=== PATIENT | female | born 1950 | race American Indian/Alaskan Native ===

== ENCOUNTER 2019-07-29 17:49 | Inpatient (IN) | payer MEDICARE ==
--- NOTE | 2019-07-29 17:58 | Event Note ---
ED Screening Note Date of service: 07/29/19 Time: 17:56 ED Screening Note: 68 y o f was sent here by car sales representative: Eliz for evaluation for A fib with rvr pmh:htn,lipidemia This initial assessment/diagnostic orders/clinical plan/treatment(s) is/are subject to change based on patients health status, clinical progression and re- assessment by fellow clinical providers in the ED. Further treatment and workup at subsequent clinical providers discretion. Patient/guardian urged not to elope from the ED as their condition may be serious if not clinically assessed and managed. Initial orders include: ekg labs
--- NOTE | 2019-07-29 18:38 | XRay Report ---
CHEST 2 VIEWS INDICATION / CLINICAL INFORMATION: a fib. COMPARISON: None available. FINDINGS: SUPPORT DEVICES: None. HEART / MEDIASTINUM: No significant abnormality. LUNGS / PLEURA: No significant pulmonary or pleural abnormality. No pneumothorax. ADDITIONAL FINDINGS: Subsegmental atelectasis in both lower lungs. IMPRESSION: 1. No acute findings. Signer Name: Santo Hill MD Signed: 07/29/2019 6:33 PM Workstation Name: [id number]
[2019-07-29 18:47] LABS: Basophils % (Auto) 0.7 % (0.0-1.8); Eosinophils # (Auto) 0.3 K/mm3 (0.0-0.4); Eosinophils % (Auto) 4.8 % (0.0-4.3); Hematocrit 37.3 % (30.3-42.9); Hemoglobin 12.4 gm/dl (10.1-14.3); Lymphocytes # (Auto) 2.1 K/mm3 (1.2-5.4); Lymphocytes % (Auto) 35.7 % (13.4-35.0); Mean Corpuscular HGB Conc 33 % (30-34); Mean Corpuscular Volume 90 fl (79-97); Monocytes # (Auto) 0.5 K/mm3 (0.0-0.8); Monocytes % (Auto) 8.5 % (0.0-7.3); Platelet Count 168 K/mm3 (140-440); Red Blood Count 4.14 M/mm3 (3.65-5.03); Red Cell Distribution Width 15.3 % (13.2-15.2)
[2019-07-29 19:15] LABS: Calcium 9.9 mg/dL (8.4-10.2)
--- NOTE | 2019-07-29 19:18 | Emergency Department Report ---
ED Palpitations HPI - General Chief Complaint: Arrhythmia/Palpitations Stated Complaint: PALPITATION Time Seen by Provider: 07/29/19 18:58 Source: patient Mode of arrival: Ambulatory Limitations: No Limitations - History of Present Illness Initial Comments: Patient is 68 years old female with history of hypertension and hyperlipidemia. Patient was sent from her fagoter's office Dr. Sharif for admission for atrial fibrillation with RVR. Patient went to her primary care physician this morning and found to have A. fib with RVR. Primary care physicians and had to Dr. Sharif did another EKG and found that she has atrial fibrillation with RVR heart rate of 130. In the emergency room patient's EKG showed sinus or ectopic atrial rhythm with a heart rate of 75 beats per minutes. Patient is currently denying any symptoms including shortness of breath or chest pain. MD Complaint: rapid heart beat, "heart racing", palpitations, irregular heart beat Context: occured during rest Associated Symptoms: denies other symptoms - Related Data Home Medications Medication Instructions Recorded Confirmed Last Taken Allopurinol [Zyloprim] 300 mg PO QDAY 07/29/19 07/29/19 1 Day Ago ~07/28/19 Amlodipine Besylate/Benazepril 1 each PO DAILY 07/29/19 07/29/19 1 Day Ago [Amlodipine-Benazepril 5-40 mg] ~07/28/19 Blood Sugar Diagnostic [Accu-Chek 1 each MC BID 07/29/19 07/29/19 1 Day Ago [facility]] ~07/28/19 Diclofenac 1% [Diclofenac 1% 100 gm TP BID 07/29/19 07/29/19 1 Day Ago topical gel] ~07/28/19 Doxazosin [Cardura] 4 mg PO BID 07/29/19 07/29/19 1 Day Ago ~07/28/19 Fluticasone Propionate 50 mcg NS DAILY 07/29/19 07/29/19 Unknown Furosemide [Lasix TAB] 40 mg PO QDAY 07/29/19 07/29/19 1 Day Ago ~07/28/19 Metoprolol Xl [Metoprolol 100 mg PO QDAY 07/29/19 07/29/19 1 Day Ago SUCCINATE ER TAB] ~07/28/19 Potassium Chloride 10 meq PO DAILY 07/29/19 07/29/19 1 Day Ago ~07/28/19 Pravastatin Sodium [Pravastatin] 80 mg PO QHS 07/29/19 07/29/19 1 Day Ago ~07/28/19 Allergies Allergy/AdvReac Type Severity Reaction Status Date / Time codeine Allergy Rash Verified 07/29/19 17:59 indomethacin [From Indocin] Allergy Rash Verified 07/29/19 17:59 metaxalone [From Skelaxin] Allergy Rash Verified 07/29/19 17:58 nitrofurantoin Allergy Rash Verified 07/29/19 17:59 [From Macrobid] Penicillins Allergy Rash Verified 07/29/19 17:59 ED Review of Systems ROS: Stated complaint: PALPITATION Other details as noted in HPI Comment: All other systems reviewed and negative Constitutional: denies: chills, fever Respiratory: denies: cough, shortness of breath, SOB with exertion Cardiovascular: palpitations. denies: chest pain Gastrointestinal: denies: abdominal pain, nausea, vomiting, diarrhea, constipation, hematemesis, melena, hematochezia Musculoskeletal: denies: back pain Neurological: denies: headache, weakness, numbness, paresthesias, confusion, abnormal gait ED Past Medical Hx - Past Medical History Previous Medical History?: Yes Hx Hypertension: Yes Additional medical history: High cholesterol - Surgical History Past Surgical History?: No - Medications Home Medications: Home Medications Medication Instructions Recorded Confirmed Last Taken Type Allopurinol [Zyloprim] 300 mg PO QDAY 07/29/19 07/29/19 1 Day Ago History ~07/28/19 Amlodipine Besylate/Benazepril 1 each PO DAILY 07/29/19 07/29/19 1 Day Ago History [Amlodipine-Benazepril 5-40 mg] ~07/28/19 Blood Sugar Diagnostic [Accu-Chek 1 each MC BID 07/29/19 07/29/19 1 Day Ago History [facility]] ~07/28/19 Diclofenac 1% [Diclofenac 1% 100 gm TP BID 07/29/19 07/29/19 1 Day Ago History topical gel] ~07/28/19 Doxazosin [Cardura] 4 mg PO BID 07/29/19 07/29/19 1 Day Ago History ~07/28/19 Fluticasone Propionate 50 mcg NS DAILY 07/29/19 07/29/19 Unknown History Furosemide [Lasix TAB] 40 mg PO QDAY 07/29/19 07/29/19 1 Day Ago History ~07/28/19 Metoprolol Xl [Metoprolol 100 mg PO QDAY 07/29/19 07/29/19 1 Day Ago History SUCCINATE ER TAB] ~07/28/19 Potassium Chloride 10 meq PO DAILY 07/29/19 07/29/19 1 Day Ago History ~07/28/19 Pravastatin Sodium [Pravastatin] 80 mg PO QHS 07/29/19 07/29/19 1 Day Ago History ~07/28/19 ED Physical Exam - General Limitations: No Limitations General appearance: alert, in no apparent distress - Head Head exam: Present: atraumatic, normocephalic, normal inspection - Eye Eye exam: Present: normal appearance - ENT ENT exam: Present: normal exam, normal orophraynx, mucous membranes moist - Neck Neck exam: Present: normal inspection, full ROM. Absent: tenderness, meningismus, lymphadenopathy, thyromegaly - Respiratory Respiratory exam: Present: normal lung sounds bilaterally - Cardiovascular Cardiovascular Exam: Present: regular rate, normal rhythm, normal heart sounds - GI/Abdominal GI/Abdominal exam: Present: soft, normal bowel sounds. Absent: distended, tenderness, guarding, rebound, rigid, organomegaly, mass, bruit, pulsatile mass, hernia - Extremities Exam Extremities exam: Present: normal inspection, full ROM, normal capillary refill. Absent: pedal edema, calf tenderness - Back Exam Back exam: Present: normal inspection, full ROM. Absent: CVA tenderness (R), CVA tenderness (L), muscle spasm, paraspinal tenderness, vertebral tenderness - Neurological Exam Neurological exam: Present: alert, oriented X3, CN II-XII intact, normal gait, reflexes normal - Psychiatric Psychiatric exam: Present: normal mood - Skin Skin exam: Present: warm, intact, normal color ED Course Vital Signs 07/29/19 07/29/19 18:58 18:59 Temperature 98.0 F 98.0 F Pulse Rate 76 87 Respiratory 17 13 Rate Blood Pressure 139/60 Blood Pressure 139/60 [Left] O2 Sat by Pulse 98 98 Oximetry ED Medical Decision Making - Lab Data Result diagrams: 07/29/19 18:24 07/29/19 18:24 - EKG Data -: EKG Interpreted by Ia EKG shows normal: sinus rhythm Rate: normal - EKG Data Interpretation: no acute changes - Radiology Data Radiology results: report reviewed - Medical Decision Making Patient is 68 years old female with history of hypertension and hyperlipidemia. Patient was sent from her fagoter's office Dr. Sharif for admission for atrial fibrillation with RVR. Patient went to her primary care physician this morning and found to have A. fib with RVR. Primary care physicians and had to Dr. Sharif did another EKG and found that she has atrial fibrillation with RVR heart rate of 130. In the emergency room patient's EKG showed sinus or ectopic atrial rhythm with a heart rate of 75 beats per minutes. Patient is currently denying any symptoms including shortness of breath or chest pain. Labs reviewed and is unremarkable. Chest x-ray is negative for acute finding. I discussed the patient with Dr. jaramillo, patient fagoter. Dr. Sharif advised to admit the patient to the hospital, intake man. He advised to start patient on Elliquis, continue her metoprolol and will follow-up with the patient in the morning. I discussed the patient was Dr. Wilson, he agreed to admit the patient to medical service for further management. Critical care attestation.: If time is entered above; I have spent that time in minutes in the direct care of this critically ill patient, excluding procedure time. ED Disposition Clinical Impression: Palpitations, New onset atrial fibrillation Disposition: OP ADMIT IP TO THIS HOSP Is pt being admited?: Yes Condition: Stable
[2019-07-29] MEDS ORDERED: SODIUM CHLORIDE 0.9% 1000 ML 1,000 ML IV SCH (20:30)
[2019-07-29 20:58] LABS: Alanine Aminotransferase 20 units/L (7-56); Albumin 4.1 g/dL (3.9-5)
[2019-07-29 20:59] LABS: INR 1.04 (0.87-1.13); Partial Thromboplastin Time 31.8 Sec. (24.2-36.6)
[2019-07-29 21:05] LABS: Free T4 (Free Thyroxine) 1.3 ng/dL (0.76-1.46)
[2019-07-29 21:15] LABS: Bilirubin,Direct < 0.2 mg/dL (0-0.2)
[2019-07-29] MEDS ORDERED: PRAVASTATIN 80 MG TAB PO ONE (21:29)
[2019-07-29 21:40] LABS: Chol/HDL Ratio 2.97 %
[2019-07-29] MEDS ORDERED: ONDANSETRON 4 MG/2 ML INJ IV PRN (22:08)
[2019-07-29] MEDS ORDERED: ACETAMINOPHEN 325 MG TAB PO PRN (22:08)
[2019-07-29] MEDS ORDERED: MAGNESIUM HYDROXIDE (MOM) ORAL LIQD UDC PO PRN (22:08)
[2019-07-29] MEDS: APIXABAN 5 MG TAB PO SCH (22:39)
--- NOTE | 2019-07-30 00:13 | History and Physical Report ---
History of Present Illness Date of examination: 07/29/19 Date of admission: 07/29/19 20:22 Chief complaint: Irregular heartbeat History of present illness: 68-year-old female with known history of hypertension and hyperlipidemia presenting to the emergency room today with atrial fibrillation with RVR. She had gone to her primary care physician's office was found to be in atrial fibrillation and sent to the emergency room for further evaluation. She denies any chest pain, no nausea vomiting, no headache or dizziness. Upon arrival in the emergency room heart rate was controlled. She was subsequently evaluated by the iron caster who recommended a beta-justus and also start the patient on Eliquis. Past History Past Medical History: hypertension, hyperlipidemia Past Surgical History: Other (Conization in 2000) Social history: no significant social history Family history: CAD, diabetes Medications and Allergies Allergies Allergy/AdvReac Type Severity Reaction Status Date / Time codeine Allergy Rash Verified 07/29/19 17:59 indomethacin [From Indocin] Allergy Rash Verified 07/29/19 17:59 metaxalone [From Skelaxin] Allergy Rash Verified 07/29/19 17:58 nitrofurantoin Allergy Rash Verified 07/29/19 17:59 [From Macrobid] Penicillins Allergy Rash Verified 07/29/19 17:59 Home Medications Medication Instructions Recorded Confirmed Last Taken Type Allopurinol [Zyloprim] 300 mg PO QDAY 07/29/19 07/29/19 1 Day Ago History ~07/28/19 Amlodipine Besylate/Benazepril 1 each PO DAILY 07/29/19 07/29/19 1 Day Ago History [Amlodipine-Benazepril 5-40 mg] ~07/28/19 Blood Sugar Diagnostic [Accu-Chek 1 each MC BID 07/29/19 07/29/19 1 Day Ago History [facility]] ~07/28/19 Diclofenac 1% [Diclofenac 1% 100 gm TP BID 07/29/19 07/29/19 1 Day Ago History topical gel] ~07/28/19 Doxazosin [Cardura] 4 mg PO BID 07/29/19 07/29/19 1 Day Ago History ~07/28/19 Fluticasone Propionate 50 mcg NS DAILY 07/29/19 07/29/19 Unknown History Furosemide [Lasix TAB] 40 mg PO QDAY 07/29/19 07/29/19 1 Day Ago History ~07/28/19 Metoprolol Xl [Metoprolol 100 mg PO QDAY 07/29/19 07/29/19 1 Day Ago History SUCCINATE ER TAB] ~07/28/19 Potassium Chloride 10 meq PO DAILY 07/29/19 07/29/19 1 Day Ago History ~07/28/19 Pravastatin Sodium [Pravastatin] 80 mg PO QHS 07/29/19 07/29/19 1 Day Ago History ~07/28/19 Active Meds: Active Medications Acetaminophen (Tylenol) 650 mg PO Q4H PRN PRN Reason: Pain MILD(1-3)/Fever >100.5/DOMINGO Apixaban (Eliquis) 5 mg PO Q12HR RADHA; Protocol Last Admin: 07/29/19 22:39 Dose: 5 mg Documented by: Sodium Chloride (Nacl 0.9% 1000 Ml) 1,000 mls @ 75 mls/hr IV DIRECT RADHA Magnesium Hydroxide (Milk Of Magnesia) 30 ml PO Q4H PRN PRN Reason: Constipation Metoprolol Tartrate (Metoprolol) 100 mg PO BID RADHA Ondansetron HCl (Zofran) 4 mg IV Q8H PRN PRN Reason: Nausea And Vomiting Sodium Chloride (Sodium Chloride Flush Syringe 10 Ml) 10 ml IV BID RADHA Sodium Chloride (Sodium Chloride Flush Syringe 10 Ml) 10 ml IV PRN PRN PRN Reason: LINE FLUSH Review of Systems Cardiovascular: palpitations Exam - Constitutional Vitals: Temp Pulse Resp BP Pulse Ox 98.1 F 68 18 149/69 97 07/29/19 23:57 07/29/19 23:57 07/29/19 23:57 07/29/19 23:57 07/29/19 23:57 General appearance: Present: no acute distress - EENT Eyes: Present: PERRL, EOM intact ENT: hearing intact, clear oral mucosa, dentition normal - Neck Neck: Present: supple, normal ROM - Respiratory Respiratory effort: normal Respiratory: bilateral: CTA - Cardiovascular Rhythm: regular Heart Sounds: Present: S1 & S2 - Extremities Extremities: no ischemia, pulses intact, No edema Peripheral Pulses: within normal limits - Abdominal General gastrointestinal: Present: soft, non-tender, non-distended - Integumentary Integumentary: Present: clear, warm, dry - Musculoskeletal Musculoskeletal: strength equal bilaterally - Psychiatric Psychiatric: appropriate mood/affect, intact judgment & insight, cooperative - Neurologic Neurologic: CNII-XII intact, moves all extremities Results - Labs CBC & Chem 7: 07/30/19 04:52 07/30/19 04:52 Labs: Abnormal lab results 07/29/19 07/29/19 07/29/19 Range/Units 18:24 18:24 19:38 RDW 15.3 H (13.2-15.2) % Lymph % (Auto) 35.7 H (13.4-35.0) % [place] % (Auto) 8.5 H (0.0-7.3) % Eos % (Auto) 4.8 H (0.0-4.3) % BUN 19 H (7-17) mg/dL Creatinine 2.2 H (0.7-1.2) mg/dL Glucose 108 H (65-100) mg/dL Troponin T 0.032 H (0.00-0.029) ng/mL NT-Pro-B Natriuret Pep 1578 H (0-900) pg/mL Triglycerides 174 H (2-149) mg/dL Assessment and Plan - Patient Problems (1) New onset atrial fibrillation Current Visit: Yes Status: Acute Plan to address problem: Patient placed on beta-justus metoprolol and also on Eliquis. She will be subsequently followed by the iron caster (2) HTN (hypertension) Current Visit: Yes Status: Acute Plan to address problem: Blood pressure stable. Will continue routine home medication. (3) Hyperlipidemia Current Visit: Yes Status: Acute Plan to address problem: We will continue routine home medication and monitor lipid profile. (4) Full code status Current Visit: Yes Status: Acute
[2019-07-30 06:10] LABS: Basophils % (Auto) 0.6 % (0.0-1.8); Eosinophils # (Auto) 0.3 K/mm3 (0.0-0.4); Eosinophils % (Auto) 5.3 % (0.0-4.3); Hematocrit 35.6 % (30.3-42.9); Hemoglobin 11.8 gm/dl (10.1-14.3); Mean Corpuscular HGB Conc 33 % (30-34); Mean Corpuscular Volume 91 fl (79-97); Monocytes # (Auto) 0.5 K/mm3 (0.0-0.8); Monocytes % (Auto) 7.8 % (0.0-7.3); Platelet Count 155 K/mm3 (140-440); Red Blood Count 3.92 M/mm3 (3.65-5.03)
[2019-07-30 06:32] LABS: Albumin 4.3 g/dL (3.9-5); Calcium 9.7 mg/dL (8.4-10.2)
[2019-07-30 06:42] LABS: INR 1.14 (0.87-1.13)
[2019-07-30 06:43] LABS: Partial Thromboplastin Time 33.9 Sec. (24.2-36.6)
[2019-07-30] MEDS ORDERED: SODIUM CHLORIDE 0.9% 1000 ML 1,000 ML IV SCH (09:00)
--- NOTE | 2019-07-30 09:02 | Consultation ---
History of Present Illness Consult date: 07/30/19 Requesting physician: HERBERT RM Consult reason: atrial fibrillation History of present illness: 68-year-old female past medical history of obesity hypertension hyperlipidemia was referred to my office for primary care doctor for abnormal EKG. EKG done at PCP showed atrial fibrillation with rapid ventricle heart rate heart rate 130s. My office patient's heart rate was in the 120s A. fib which is new onset. Patient some intermittent palpitations. Patient's were already on Toprol-XL 100. Patient was sent to the ED for further evaluation patient's heart rate was in a questionable junctional rhythm versus ectopic atrial rhythm. Patient was admitted was also to have profound acute renal insufficiency has patient states that having history of renal insufficiency in the past. Does take Lasix. Patient was started on IV hydration. Patient continue beta justus therapy and patient on review of telemetry shows to be in sinus rhythm. Denies syncope or chest pain. No fever no chills. Past History Past Medical History: hypertension, hyperlipidemia Past Surgical History: Other (Conization in 2000) Social history: no significant social history Family history: CAD, diabetes Medications and Allergies Allergies Allergy/AdvReac Type Severity Reaction Status Date / Time codeine Allergy Rash Verified 07/29/19 17:59 indomethacin [From Indocin] Allergy Rash Verified 07/29/19 17:59 metaxalone [From Skelaxin] Allergy Rash Verified 07/29/19 17:58 nitrofurantoin Allergy Rash Verified 07/29/19 17:59 [From Macrobid] Penicillins Allergy Rash Verified 07/29/19 17:59 Home Medications Medication Instructions Recorded Confirmed Last Taken Type Allopurinol [Zyloprim] 300 mg PO QDAY 07/29/19 07/29/19 1 Day Ago History ~07/28/19 Amlodipine Besylate/Benazepril 1 each PO DAILY 07/29/19 07/29/19 1 Day Ago History [Amlodipine-Benazepril 5-40 mg] ~07/28/19 Blood Sugar Diagnostic [Accu-Chek 1 each MC BID 07/29/19 07/29/19 1 Day Ago History [facility]] ~07/28/19 Diclofenac 1% [Diclofenac 1% 100 gm TP BID 07/29/19 07/29/19 1 Day Ago History topical gel] ~07/28/19 Doxazosin [Cardura] 4 mg PO BID 07/29/19 07/29/19 1 Day Ago History ~07/28/19 Fluticasone Propionate 50 mcg NS DAILY 07/29/19 07/29/19 Unknown History Furosemide [Lasix TAB] 40 mg PO QDAY 07/29/19 07/29/19 1 Day Ago History ~07/28/19 Metoprolol Xl [Metoprolol 100 mg PO QDAY 07/29/19 07/29/19 1 Day Ago History SUCCINATE ER TAB] ~07/28/19 Potassium Chloride 10 meq PO DAILY 07/29/19 07/29/19 1 Day Ago History ~07/28/19 Pravastatin Sodium [Pravastatin] 80 mg PO QHS 07/29/19 07/29/19 1 Day Ago History ~07/28/19 Active Meds: Active Medications Acetaminophen (Tylenol) 650 mg PO Q4H PRN PRN Reason: Pain MILD(1-3)/Fever >100.5/DOMINGO Apixaban (Eliquis) 5 mg PO Q12HR RADHA; Protocol Last Admin: 07/29/19 22:39 Dose: 5 mg Documented by: Sodium Chloride (Nacl 0.9% 1000 Ml) 1,000 mls @ 75 mls/hr IV DIRECT RADHA Sodium Chloride (Nacl 0.9% 1000 Ml) 1,000 mls @ 100 mls/hr IV DIRECT RADHA Magnesium Hydroxide (Milk Of Magnesia) 30 ml PO Q4H PRN PRN Reason: Constipation Metoprolol Tartrate (Metoprolol) 100 mg PO BID RADHA Ondansetron HCl (Zofran) 4 mg IV Q8H PRN PRN Reason: Nausea And Vomiting Sodium Chloride (Sodium Chloride Flush Syringe 10 Ml) 10 ml IV BID RADHA Sodium Chloride (Sodium Chloride Flush Syringe 10 Ml) 10 ml IV PRN PRN PRN Reason: LINE FLUSH Review of Systems All systems: negative (as per the HPI) Physical Examination Vital Signs Temp Pulse Resp BP Pulse Ox 98.0 F 76 17 139/60 98 07/29/19 18:58 07/29/19 18:58 07/29/19 18:58 07/29/19 18:58 07/29/19 18:58 General appearance: no acute distress, well-nourished HEENT: Positive: PERRL, Mucus Membranes Moist Neck: Positive: neck supple, trachea midline Cardiac: Positive: Reg Rate and Rhythm, S1/S2. Negative: Audible Murmur Lungs: Positive: clear to auscultation, Normal Breath Sounds Neuro: Positive: Grossly Intact Abdomen: Positive: Soft, Active Bowel Sounds. Negative: Tender, Distended Female genitourinary: deferred Skin: Positive: Clear Incision: Cardiac Cath Site Musculoskeletal: No Pain, Normal Range of Motion Extremities: Present: normal. Absent: edema Results 07/30/19 04:52 07/30/19 04:52 Cardiac Enzymes 07/29/19 07/30/19 Range/Units 19:38 04:52 AST 24 23 (5-40) units/L Coagulation 07/29/19 07/30/19 Range/Units 19:38 04:52 PT 13.5 14.5 (12.2-14.9) Sec. INR 1.04 1.14 H (0.87-1.13) APTT 31.8 33.9 (24.2-36.6) Sec. Lipids 07/29/19 Range/Units 19:38 Triglycerides 174 H (2-149) mg/dL Cholesterol 146 (50-199) mg/dL HDL Cholesterol 49 (40-59) mg/dL Cholesterol/HDL Ratio 2.97 % CBC 07/29/19 07/30/19 Range/Units 18:24 04:52 WBC 5.9 6.3 (4.5-11.0) K/mm3 RBC 4.14 3.92 (3.65-5.03) M/mm3 Hgb 12.4 11.8 (10.1-14.3) gm/dl Hct 37.3 35.6 (30.3-42.9) % Plt Count 168 155 (140-440) K/mm3 Lymph # 2.1 3.0 (1.2-5.4) K/mm3 [place] # 0.5 0.5 (0.0-0.8) K/mm3 Eos # 0.3 0.3 (0.0-0.4) K/mm3 Baso # 0.0 0.0 (0.0-0.1) K/mm3 Comprehensive Metabolic Panel 07/29/19 07/29/19 07/30/19 Range/Units 18:24 19:38 04:52 Sodium 141 140 (137-145) mmol/L Potassium 3.8 4.2 (3.6-5.0) mmol/L Chloride 100.0 102.6 (98-107) mmol/L Carbon Dioxide 22 20 L (22-30) mmol/L BUN 19 H 27 H (7-17) mg/dL Creatinine 2.2 H 2.6 H (0.7-1.2) mg/dL Glucose 108 H 110 H (65-100) mg/dL Calcium 9.9 9.7 (8.4-10.2) mg/dL Direct Bilirubin < 0.2 (0-0.2) mg/dL Indirect Bilirubin 0.0 mg/dL AST 24 23 (5-40) units/L ALT 20 19 (7-56) units/L Alkaline Phosphatase 89 86 (35-129) units/L Total Protein 7.5 8.2 (6.3-8.2) g/dL Albumin 4.1 4.3 (3.9-5) g/dL - Imaging and Cardiology Echo: pending EKG interpretations - Telemetry EKG Rhythm: Sinus Rhythm (sinus rhythm nonspecific ST-T is) - EKG Sinus rhythms and dysrhythmias: sinus rhythm Assessment and Plan Continue beta justus therapy hold patient's Lotrel continue IV hydration pending renal consultation repeat troponin for elevation for trend. Pending echocardiogram continue oral anticoagulation with elquis. cont monitor patient - Patient Problems (1) Acute kidney insufficiency Current Visit: Yes Status: Acute (2) Non-STEMI (non-ST elevated myocardial infarction) Current Visit: Yes Status: Acute Plan to address problem: type 2 (3) HTN (hypertension) Current Visit: Yes Status: Chronic Qualifiers: Hypertension type: essential hypertension Qualified Code(s): I10 - Essential (primary) hypertension (4) Hyperlipidemia Current Visit: Yes Status: Chronic Qualifiers: Hyperlipidemia type: mixed hyperlipidemia Qualified Code(s): E78.2 - Mixed hyperlipidemia (5) New onset atrial fibrillation Current Visit: Yes Status: Acute (6) Palpitations Current Visit: Yes Status: Resolved
[2019-07-30] MEDS: METOPROLOL TARTRATE 100 MG TAB PO SCH ×2 (11:02→22:32)
[2019-07-30] MEDS: APIXABAN 5 MG TAB PO SCH ×2 (11:02→22:31)
--- NOTE | 2019-07-30 13:49 | XRay Report ---
CHEST 1 VIEW INDICATION: pleural effusion. COMPARISON: 07/29/2019 FINDINGS: Support devices: None. Heart: Within normal limits. Lungs/Pleura: No acute air space or interstitial disease. Additional findings: None. IMPRESSION: Unremarkable AP chest. No pleural effusion is appreciated. Signer Name: Grant Bernardo Jr, MD Signed: 07/30/2019 1:45 PM Workstation Name: [id number]
--- NOTE | 2019-07-30 14:52 | Consultation ---
History of Present Illness - Reason for Consult Consult date: 07/30/19 acute renal failure - History of Present Illness The patient is a 68 YO AAF with history significant for Obesity, Hypertension and Hyperlipidemia who was sent from Socket Puller's office for evaluation of new onset Atrial fibrillation with rapid ventricle heart rate with heart rate in 130s. Patient has intermittent palpitations. Patient denies N, V, D , abd pain, dysuria, hematuria, fever, chills, dizziness, syncope, dysuria, hematuria, leg swelling or weakness. Labs significant for creatinine 2.6. Patient denies any prior kidney problem. Nephrology was consulted for further evaluation. Past History Past Medical History: hypertension, hyperlipidemia, other (Obesity) Past Surgical History: Other (Conization in 2000) Social history: no significant social history Family history: CAD, diabetes Medications and Allergies Allergies Allergy/AdvReac Type Severity Reaction Status Date / Time codeine Allergy Rash Verified 07/29/19 17:59 indomethacin [From Indocin] Allergy Rash Verified 07/29/19 17:59 metaxalone [From Skelaxin] Allergy Rash Verified 07/29/19 17:58 nitrofurantoin Allergy Rash Verified 07/29/19 17:59 [From Macrobid] Penicillins Allergy Rash Verified 07/29/19 17:59 Home Medications Medication Instructions Recorded Confirmed Last Taken Type Allopurinol [Zyloprim] 300 mg PO QDAY 07/29/19 07/29/19 1 Day Ago History ~07/28/19 Amlodipine Besylate/Benazepril 1 each PO DAILY 07/29/19 07/29/19 1 Day Ago History [Amlodipine-Benazepril 5-40 mg] ~07/28/19 Blood Sugar Diagnostic [Accu-Chek 1 each MC BID 07/29/19 07/29/19 1 Day Ago History [facility]] ~07/28/19 Diclofenac 1% [Diclofenac 1% 100 gm TP BID 07/29/19 07/29/19 1 Day Ago History topical gel] ~07/28/19 Doxazosin [Cardura] 4 mg PO BID 07/29/19 07/29/19 1 Day Ago History ~07/28/19 Fluticasone Propionate 50 mcg NS DAILY 07/29/19 07/29/19 Unknown History Furosemide [Lasix TAB] 40 mg PO QDAY 07/29/19 07/29/19 1 Day Ago History ~07/28/19 Metoprolol Xl [Metoprolol 100 mg PO QDAY 07/29/19 07/29/19 1 Day Ago History SUCCINATE ER TAB] ~07/28/19 Potassium Chloride 10 meq PO DAILY 07/29/19 07/29/19 1 Day Ago History ~07/28/19 Pravastatin Sodium [Pravastatin] 80 mg PO QHS 07/29/19 07/29/19 1 Day Ago History ~07/28/19 Active Meds: Active Medications Acetaminophen (Tylenol) 650 mg PO Q4H PRN PRN Reason: Pain MILD(1-3)/Fever >100.5/DOMINGO Apixaban (Eliquis) 5 mg PO Q12HR COUNT INCLUDES THE [facility]; Protocol Last Admin: 07/30/19 11:02 Dose: 5 mg Documented by: Sodium Chloride (Nacl 0.9% 1000 Ml) 1,000 mls @ 100 mls/hr IV DIRECT COUNT INCLUDES THE [facility] Last Admin: 07/30/19 11:30 Dose: 100 mls/hr Documented by: Magnesium Hydroxide (Milk Of Magnesia) 30 ml PO Q4H PRN PRN Reason: Constipation Metoprolol Tartrate (Metoprolol) 100 mg PO BID COUNT INCLUDES THE [facility] Last Admin: 07/30/19 11:02 Dose: 100 mg Documented by: Ondansetron HCl (Zofran) 4 mg IV Q8H PRN PRN Reason: Nausea And Vomiting Sodium Chloride (Sodium Chloride Flush Syringe 10 Ml) 10 ml IV BID COUNT INCLUDES THE [facility] Last Admin: 07/30/19 11:25 Dose: 10 ml Documented by: Sodium Chloride (Sodium Chloride Flush Syringe 10 Ml) 10 ml IV PRN PRN PRN Reason: LINE FLUSH Review of Systems Constitutional: no weight loss, no weight gain, no fever, no chills, no anorexia, no fatigue, no weakness, no poor appetite Breasts: deferred Cardiovascular: palpitations, high blood pressure, no chest pain, no orthopnea, no edema, no syncope, no lightheadedness, no shortness of breath, no leg edema Respiratory: no cough, no cough with sputum, no hemoptysis, no shortness of breath, no dyspnea on exertion, no sleep apnea Gastrointestinal: no abdominal pain, no nausea, no vomiting, no diarrhea Genitourinary Female: no dysuria, no hematuria Musculoskeletal: no neck pain, no muscle weakness, no muscle cramps Integumentary: no rash Neurological: no paralysis, no weakness, no convulsions, no aphasia, no change in speech, no change in mentation, no confusion, no memory loss Endocrine: no weight change Exam - Vital Signs Vital signs: Vital Signs Temp Pulse Resp BP Pulse Ox 98.0 F 76 17 139/60 98 07/29/19 18:58 07/29/19 18:58 07/29/19 18:58 07/29/19 18:58 07/29/19 18:58 - General Appearance General appearance: well-developed, well-nourished, appears stated age, obese, other (not in distress) EENT: ATNC, PERRL, hearing intact, vision intact Neck: Present: neck supple, trachea midline Respiratory: Clear to Ascultation Heart: regular, S1S2, no murmurs Gastrointestinal: Present: normoactive bowel sounds. Absent: tenderness, distended Integumentary: no rash, warm and dry Neurologic: no focal deficit, no asterixis, alert and oriented x3 Musculoskeletal: Present: other (no edema) Results - Lab Results 07/30/19 04:52 07/30/19 04:52 Most recent lab results Calcium 9.7 mg/dL (8.4-10.2) 07/30/19 04:52 Phosphorus 4.00 mg/dL (2.5-4.5) 07/29/19 18:24 Magnesium 1.90 mg/dL (1.7-2.3) 07/29/19 18:24 - Image Kidney/bladder ultrasound: pending Assessment and Plan 1. Acute kidney injury: Likely Vasomotor RHETT in the setting of A.fib with RVR. Urine studies and Renal US ordered. Continue IV fluids. Monitor renal function. Renal prognosis is guarded. Avoid nephrotoxic agents. Meds dosage based on GFR. 2. FEN: Metabolic acidosis, monitor. Monitor lytes. 3. Paroxysmal A.fib: Admitted with A.fib with RVR. SR now. 4. Hypertension: Monitor BP.
--- NOTE | 2019-07-30 15:18 | Cat Scan Report ---
CT CHEST WITHOUT CONTRAST INDICATION / CLINICAL INFORMATION: pleural effusion. TECHNIQUE: Axial CT images were obtained through the chest without contrast. Sagittal and coronal reformatted im ages. All CT scans at this location are performed using CT dose reduction for ALARA by means of autom ated exposure control. COMPARISON: None available. FINDINGS: HEART: No significant abnormality. THORACIC AORTA: No significant abnormality. MEDIASTINUM and BRIONNA: No significant abnormality. LUNGS: No acute air space or interstitial disease. PLEURA: No significant pleural effusion. No pneumothorax. SKELETAL SYSTEM: No significant abnormality. UPPER ABDOMEN: No significant abnormality. ADDITIONAL FINDINGS: None. IMPRESSION: No significant abnormality. Signer Name: Grant Bernardo Jr, MD Signed: 07/30/2019 3:14 PM Workstation Name: [id number]
--- NOTE | 2019-07-30 15:55 | Progress Note ---
Assessment and Plan / New onset atrial fibrillation Patient placed on beta-justus metoprolol and also on Eliquis. consulted auto clutch rebuilder rate controlled, preserved Ef on 2d echo / HTN (hypertension) Blood pressure stable. Will continue routine home medication. / Hyperlipidemia cont statin /RHETT on possible CKD monitor renal function, consult value engineer hold ACEI and lasix, started on iv fluid /Pleural effusion ??, seen during 2d echo, ordered CT chest - no evident fluid /elevated troponin - NSTEMI type 2 likely from atrial fib and underlying worsening renal function preserved EF on 2d echo, conservative mx per cardiology /Obesity, diet and exercise regimen as appropriate as outpt /Dvt Px, on eliquis Brief History: The patient is a 68 YO AAF with history significant for Obesity, Hypertension and Hyperlipidemia who was sent from Care Manager Cna's office for evaluation of new onset Atrial fibrillation with rapid ventricle heart rate with heart rate in 130s. Subjective Date of service: 07/30/19 Interval history: patient seen and examined NSR now, no acute event o/n denies any chest pain or SOB Objective - Constitutional Vitals: Vital Signs - 12hr 07/30/19 07/30/19 07/30/19 04:33 08:47 11:02 Temperature 98.2 F 97.7 F Pulse Rate 62 65 65 Pulse Rate [ Apical] Respiratory 18 18 Rate Blood Pressure 136/53 149/53 149/53 O2 Sat by Pulse 98 97 Oximetry 07/30/19 12:00 Temperature Pulse Rate 65 Pulse Rate [ 65 Apical] Respiratory Rate Blood Pressure O2 Sat by Pulse Oximetry General appearance: Present: no acute distress, obese - EENT Eyes: PERRL, EOM intact ENT: hearing intact, clear oral mucosa Ears: bilateral: normal - Neck Neck: supple, normal ROM - Respiratory Respiratory effort: normal Respiratory: bilateral: CTA - Cardiovascular Rhythm: regular Heart Sounds: Present: S1 & S2. Absent: gallop, rub Extremities: pulses intact, No edema, normal color, Full ROM - Gastrointestinal General gastrointestinal: Present: soft, non-tender, non-distended, normal bowel sounds - Integumentary Integumentary: clear, warm, dry - Musculoskeletal Musculoskeletal: 1, strength equal bilaterally - Neurologic Neurologic: moves all extremities - Psychiatric Psychiatric: memory intact, appropriate mood/affect, intact judgment & insight - Labs CBC & Chem 7: 07/30/19 04:52 07/31/19 04:30 Labs: Abnormal lab results 07/29/19 07/29/19 07/29/19 Range/Units 18:24 18:24 19:38 RDW 15.3 H (13.2-15.2) % Lymph % (Auto) 35.7 H (13.4-35.0) % Mason % (Auto) 8.5 H (0.0-7.3) % Eos % (Auto) 4.8 H (0.0-4.3) % Seg Neutrophils % (40.0-70.0) % INR (0.87-1.13) Carbon Dioxide (22-30) mmol/L BUN 19 H (7-17) mg/dL Creatinine 2.2 H (0.7-1.2) mg/dL Glucose 108 H (65-100) mg/dL Troponin T 0.032 H (0.00-0.029) ng/mL NT-Pro-B Natriuret Pep 1578 H (0-900) pg/mL Triglycerides 174 H (2-149) mg/dL 07/30/19 07/30/19 07/30/19 Range/Units 04:52 04:52 04:52 RDW (13.2-15.2) % Lymph % (Auto) 47.0 H (13.4-35.0) % Mason % (Auto) 7.8 H (0.0-7.3) % Eos % (Auto) 5.3 H (0.0-4.3) % Seg Neutrophils % 39.3 L (40.0-70.0) % INR 1.14 H (0.87-1.13) Carbon Dioxide 20 L (22-30) mmol/L BUN 27 H (7-17) mg/dL Creatinine 2.6 H (0.7-1.2) mg/dL Glucose 110 H (65-100) mg/dL Troponin T (0.00-0.029) ng/mL NT-Pro-B Natriuret Pep (0-900) pg/mL Triglycerides (2-149) mg/dL - Imaging and cardiology Chest x-ray: report reviewed (no infiltrates) CT scan - chest: report reviewed (no pleural effusion)
[2019-07-30 20:41] LABS: Bilirubin,Urine NEG (Negative); Blood,Urine NEG (Negative); Color,Urine Yellow (Yellow); Urobilinogen,Urine < 2.0 mg/dL (<2.0)
[2019-07-30 20:44] LABS: Creatinine,Urine 124.7 mg/dL (0.1-20.0)
[2019-07-31 05:14] LABS: Calcium 8.9 mg/dL (8.4-10.2)
--- NOTE | 2019-07-31 08:13 | Progress Note ---
Assessment and Plan 1. Acute kidney injury: Likely Vasomotor RHETT in the setting of A.fib with RVR. Renal US pending. Continue IV fluids. Monitor renal function. Renal prognosis is guarded. Avoid nephrotoxic agents. Meds dosage based on GFR. 2. FEN: Metabolic acidosis, improving. Monitor lytes. 3. Paroxysmal A.fib: Admitted with A.fib with RVR. SR now. 4. Hypertension: Monitor BP. If discharged f/u with me in 1-2 weeks. Examination: General appearance: well-developed, well-nourished, appears stated age, obese, not in distress HEENT: ATNC, KAROL, hearing intact, vision intact Neck: neck supple, trachea midline Respiratory: Clear to Ascultation Heart: regular, S1S2, no murmurs Gastrointestinal: obese, normoactive bowel sounds, not tender, not distended Integumentary: no rash, warm and dry Neurologic: no focal deficit, no asterixis, alert and oriented x3 Ext: no edema Subjective Date of service: 07/31/19 Interval history: Patient was seen and examined at the bedside. Doing ok. Objective - Vital Signs Vital signs: Vital Signs - 12hr 07/30/19 07/30/19 07/31/19 22:32 23:58 04:30 Temperature 98.0 F Pulse Rate 67 64 55 L Respiratory 18 18 Rate Blood Pressure 140/48 133/47 172/61 O2 Sat by Pulse 99 92 Oximetry 07/31/19 07/31/19 04:32 07:43 Temperature 97.7 F 98.6 F Pulse Rate 59 L Respiratory 18 Rate Blood Pressure 171/55 O2 Sat by Pulse 92 Oximetry - Lab 07/30/19 04:52 07/31/19 04:30 Most recent lab results Calcium 8.9 mg/dL (8.4-10.2) 07/31/19 04:30 Phosphorus 4.00 mg/dL (2.5-4.5) 07/29/19 18:24 Magnesium 1.90 mg/dL (1.7-2.3) 07/29/19 18:24 Urine Creatinine 124.7 mg/dL (0.1-20.0) H 07/30/19 Unknown Urine Sodium 14 mmol/L 07/30/19 Unknown Medications & Allergies - Medications Allergies/Adverse Reactions: Allergies codeine Allergy (Verified 07/29/19 17:59) Rash indomethacin [From Indocin] Allergy (Verified 07/29/19 17:59) Rash metaxalone [From Skelaxin] Allergy (Verified 07/29/19 17:58) Rash nitrofurantoin [From Macrobid] Allergy (Verified 07/29/19 17:59) Rash Penicillins Allergy (Verified 07/29/19 17:59) Rash Home Medications: Home Medications Medication Instructions Recorded Confirmed Last Taken Type Allopurinol [Zyloprim] 300 mg PO QDAY 07/29/19 07/29/19 1 Day Ago History ~07/28/19 Blood Sugar Diagnostic [Accu-Chek 1 each MC BID 07/29/19 07/29/19 1 Day Ago History [facility]] ~07/28/19 Diclofenac 1% [Diclofenac 1% 100 gm TP BID 07/29/19 07/29/19 1 Day Ago History topical gel] ~07/28/19 Fluticasone Propionate 50 mcg NS DAILY 07/29/19 07/29/19 Unknown History Metoprolol Xl [Metoprolol 100 mg PO QDAY 07/29/19 07/29/19 1 Day Ago History SUCCINATE ER TAB] ~07/28/19 Pravastatin Sodium [Pravastatin] 80 mg PO QHS 07/29/19 07/29/19 1 Day Ago History ~07/28/19 Apixaban [Eliquis] 5 mg PO Q12HR #60 tablet 07/31/19 Unknown Rx amLODIPine 5 mg PO QDAY #30 tablet 07/31/19 Unknown Rx Active Medications: Generic Name Dose Route Start Last Admin Trade Name Wilderq PRN Reason Stop Dose Admin Acetaminophen 650 mg 07/29/19 22:08 Tylenol PO Q4H PRN Pain MILD(1-3)/Fever >100.5/DOMINGO Apixaban 5 mg 07/29/19 22:00 07/30/19 22:31 Eliquis PO 5 mg Q12HR RADHA Administration Protocol Sodium Chloride 1,000 mls @ 100 mls/hr 07/30/19 09:00 07/30/19 11:30 Nacl 0.9% 1000 Ml IV 100 mls/hr DIRECT RADHA Administration Magnesium Hydroxide 30 ml 07/29/19 22:08 Milk Of Magnesia PO Q4H PRN Constipation Metoprolol Tartrate 100 mg 07/30/19 10:00 07/30/19 22:32 Metoprolol PO 100 mg BID RADHA Administration Ondansetron HCl 4 mg 07/29/19 22:08 Zofran IV Q8H PRN Nausea And Vomiting Sodium Chloride 10 ml 07/30/19 10:00 07/30/19 22:33 Sodium Chloride Flush Syringe 10 Ml IV 10 ml BID RADHA Administration Sodium Chloride 10 ml 07/29/19 22:08 Sodium Chloride Flush Syringe 10 Ml IV PRN PRN LINE FLUSH
[2019-07-31] MEDS: APIXABAN 5 MG TAB PO SCH (09:45)
[2019-07-31] MEDS: METOPROLOL TARTRATE 100 MG TAB PO SCH (09:45)
[2019-07-31] MEDS ORDERED: amLODIPine 5 MG TAB PO SCH (10:00)
--- NOTE | 2019-07-31 10:38 | Progress Note ---
Assessment and Plan Patient is in normal sinus rhythm for the last 36 hours CAT scan of the chest was negative for pleural effusion. Patient will restart amlodipine 5 mg. Continue home dose of Toprol-XL 100 mg. Continue oral anticoagulation elquis. Patient has renal function has been improving with IV fluids. Will be discharged home in cardiology in one week time DC Lasix and GIDEON inhibitor and potassium discussed this in detail with the patient patient's and son - Patient Problems (1) Acute kidney insufficiency Current Visit: Yes Status: Acute (2) Non-STEMI (non-ST elevated myocardial infarction) Current Visit: Yes Status: Acute (3) HTN (hypertension) Current Visit: Yes Status: Chronic Qualifiers: Hypertension type: essential hypertension Qualified Code(s): I10 - Essential (primary) hypertension (4) Hyperlipidemia Current Visit: Yes Status: Chronic Qualifiers: Hyperlipidemia type: mixed hyperlipidemia Qualified Code(s): E78.2 - Mixed hyperlipidemia (5) New onset atrial fibrillation Current Visit: Yes Status: Acute (6) Palpitations Current Visit: Yes Status: Resolved Subjective Date of service: 07/31/19 Principal diagnosis: afib Interval history: pt has no sob and no palpations Objective Vital Signs Temp Pulse Pulse Resp BP Pulse Ox 07/31/19 09:51 97 07/31/19 09:45 62 171/55 07/31/19 07:43 98.6 F 59 L 18 171/55 92 07/31/19 04:32 97.7 F 07/31/19 04:30 55 L 18 172/61 92 07/30/19 23:58 98.0 F 64 18 133/47 99 07/30/19 22:32 67 140/48 07/30/19 19:52 67 07/30/19 19:34 98.3 F 67 18 140/48 98 07/30/19 16:24 98.1 F 59 L 18 151/54 94 07/30/19 12:41 97.6 F 63 18 136/58 90 07/30/19 12:00 65 65 07/30/19 11:02 65 149/53 - Physical Examination General: No Apparent Distress HEENT: Positive: PERRL, Mucus Membranes Moist Neck: Positive: neck supple, trachea midline Cardiac: Positive: Reg Rate and Rhythm Lungs: Positive: clear to auscultation Neuro: Positive: Grossly Intact Abdomen: Positive: Soft, Active Bowel Sounds. Negative: Tender, Distended Skin: Positive: Clear Incision: Cardiac Cath Site Musculoskeletal: No Pain, Normal Range of Motion Extremities: Present: normal. Absent: edema - Labs and Meds Comprehensive Metabolic Panel 07/31/19 Range/Units 04:30 Sodium 140 (137-145) mmol/L Potassium 4.8 (3.6-5.0) mmol/L Chloride 109.1 H (98-107) mmol/L Carbon Dioxide 22 (22-30) mmol/L BUN 30 H (7-17) mg/dL Creatinine 1.7 H (0.7-1.2) mg/dL Glucose 109 H (65-100) mg/dL Calcium 8.9 (8.4-10.2) mg/dL - Imaging and Cardiology Echo: pending, report reviewed (normal lv function moderate lae ) - Telemetry EKG Rhythm: Sinus Rhythm - EKG Sinus rhythms and dysrhythmias: sinus rhythm
[2019-07-31 11:18] VITALS: BP 148/59
--- NOTE | 2019-07-31 14:25 | Discharge Summary ---
Providers - Providers Date of Admission: 07/29/19 20:22 Date of discharge: 07/31/19 Attending physician: BOUCHRA PRASAD 07/29/19 19:20 Consult to Physician [CONS] Stat Comment: Consulting Provider: KAREEN PERES Physician Instructions: Reason For Exam: new onset atrial fibrillation 07/30/19 13:53 Consult to Physician [CONS] Routine Comment: Consulting Provider: CHIOMA TITUS Physician Instructions: Reason For Exam: rhett on ckd Primary care physician: SYSTEMS COORDINATOR Hospitalization Condition: Stable Pertinent studies: CXR CT chest w/o contrast Hospital course: The patient is a 68 YO AAF with history significant for Obesity, Hypertension and Hyperlipidemia who was sent from Pulmonary Nurse Practitioner's office for evaluation of new onset Atrial fibrillation with rapid ventricle heart rate with heart rate in 130s. she was admitted for further evaluation and Mx. Discharge diagnosis and Mx: / New onset atrial fibrillation Patient placed on beta-justus metoprolol and also on Eliquis. consulted planning feeder rate controlled, preserved Ef on 2d echo. cardiology recommended to cont BB for rate control and AC with eliquis - further f/u outpt / HTN (hypertension) Blood pressure stable. Will continue norvasc and BB. / Hyperlipidemia cont statin /RHETT on possible CKD - due to meds induced vs vasomotor nephropathy monitored renal function, consulted chronic specialist hold ACEI and lasix, started on iv fluid will continue outpt f/u /Pleural effusion ??, ruled out seen during 2d echo, ordered CT chest - no evident fluid /elevated troponin - NSTEMI type 2 likely from atrial fib and underlying worsening renal function preserved EF on 2d echo, conservative mx per cardiology /Obesity, diet and exercise regimen as appropriate as outpt /Dvt Px, on eliquis Physical exam General appearance: Present: no acute distress, obese - EENT Eyes: PERRL, EOM intact ENT: hearing intact, clear oral mucosa Ears: bilateral: normal - Neck Neck: supple, normal ROM - Respiratory Respiratory effort: normal Respiratory: bilateral: CTA - Cardiovascular Rhythm: regular Heart Sounds: Present: S1 & S2. Absent: gallop, rub Extremities: pulses intact, No edema, normal color, Full ROM - Gastrointestinal General gastrointestinal: Present: soft, non-tender, non-distended, normal bowel sounds - Integumentary Integumentary: clear, warm, dry - Musculoskeletal Musculoskeletal: 1, strength equal bilaterally - Neurologic Neurologic: moves all extremities - Psychiatric Psychiatric: memory intact, appropriate mood/affect, intact judgment & insight Disposition: DC-01 TO HOME OR SELFCARE Time spent for discharge: 34 minutes Core Measure Documentation - Palliative Care Palliative Care/ Comfort Measures: Not Applicable - Core Measures Any of the following diagnoses?: none Exam - Constitutional Vitals: Temp Pulse Resp BP Pulse Ox 97.9 F 53 L 18 148/59 98 07/31/19 11:16 07/31/19 11:30 07/31/19 11:16 07/31/19 11:16 07/31/19 11:16 Plan Activity: advance as tolerated Weight Bearing Status: Weight Bear as Tolerated Diet: low fat, low salt Special Instructions: record daily BP diary Follow up with: PRIMARY CARE, [Primary Care Provider] - 7 Days KAREEN PERES MD [Staff Physician] - 7 Days CHIOMA TITUS MD [Staff Physician] - 7 Days Prescriptions: amLODIPine 5 mg PO QDAY #30 tablet Apixaban [Eliquis] 5 mg PO Q12HR #60 tablet
--- NOTE | 2019-07-31 14:56 | Ultrasound Report ---
ULTRASOUND RENAL INDICATION / CLINICAL INFORMATION: Acute renal failure.. COMPARISON: None available. FINDINGS: RIGHT KIDNEY: Length = 9.9 cm. [normal > 9 cm] - Parenchymal Thickness = 1.8 cm. [normal > 1.5 cm] - Echogenicity: Slightly increased - Hydronephrosis: None. - Cyst or mass: No significant abnormality. - Stones: None seen. LEFT KIDNEY: Length = 10.5 cm. [normal > 9 cm] - Parenchymal Thickness = 1.6 cm. [normal > 1.5 cm] - Echogenicity: Slightly increased - Hydronephrosis: None. - Cyst or mass: No significant abnormality. - Stones: None seen. URINARY BLADDER: No significant abnormality. FREE FLUID: None. ADDITIONAL FINDINGS: None. IMPRESSION: Normal size but slightly echogenic kidneys consistent with nonspecific renal parenchymal disease. No focal renal lesion or hydronephrosis. Signer Name: Grant Bernardo Jr, MD Signed: 07/31/2019 2:52 PM Workstation Name: [id number]
== END 2019-07-31 16:59 | disposition home or self-care (01) | DRG 280 ==
LOC: ED 17:49 → 4A 20:22
PROVIDERS: ADMIT Internal Medicine; ATTEND Internal Medicine
DX: I48.0 Paroxysmal atrial fibrillation (principal); I21.A1 Myocardial infarction type 2; N17.0 Acute kidney failure with tubular necrosis; E87.2 Acidosis; E66.9 Obesity, unspecified; Z68.34 Body mass index [BMI] 34.0-34.9, adult; I12.9 Hypertensive chronic kidney disease with stage 1 through stage 4 chronic kidney disease, or unspecified chronic kidney disease; N18.9 Chronic kidney disease, unspecified; E78.2 Mixed hyperlipidemia; Z82.49 Family history of ischemic heart disease and other diseases of the circulatory system; Z83.3 Family history of diabetes mellitus; Z88.5 Allergy status to narcotic agent; Z88.0 Allergy status to penicillin; Z79.899 Other long term (current) drug therapy
CPT/HCPCS: 36415; 71045; 71046; 71250; 76770; 80048; 80053; 80061; 80076; 81001; 82550; 82570; 83735; 83880; 84100; 84300; 84439; 84443; 84484; 85025; 85610; 85730; 89050; 93005; 93010; 93306; 96374; G0378; A9270-GY; J7030